=== PATIENT | male | born 1975 | race Two or more races ===

== ENCOUNTER 2025-08-12 09:12 | Emergency (ER) | payer BC, OTHER ==
[~2025-08-12] VITALS: Ht 175.3 cm; Wt 93.0 kg
[2025-08-12 09:33] LABS: Hematocrit 46.1 % (41.0-53.0); Hemoglobin 16.0 g/dL (13.5-17.5); Mean Corpuscular Hemoglobin 32.7 pg (28.0-32.0); Mean Corpuscular Volume 94.3 fL (80.0-100.0); Nucleated Red Blood Cells % 0.0 %
[2025-08-12 09:42] LABS: Chloride 101 mmol/L (98-107); Potassium 3.8 mmol/L (3.5-5.1)
[2025-08-12 09:43] LABS: Anion Gap 8 (5-15); Calcium 9.6 mg/dL (8.7-10.4); Carbon Dioxide 27 mmol/L (20-31)
[2025-08-12 09:45] LABS: Sodium 136 mmol/L (136-145)
[2025-08-12 09:48] LABS: BUN/Creatinine Ratio 8.7 (10.0-20.0); Glucose 91 mg/dL (74-106)
[2025-08-12 10:08] LABS: Blood Urea Nitrogen 8 mg/dL (9-23)
--- NOTE | 2025-08-12 11:03 | ED.PDOC ---
GI ASSESSMENT HPI Comments 50 year old male presents to the ED for chief complaint of abdominal pain. Pt states this morning he had sharp abdominal pains that radiate across chest to the upper right abdomen. Pt describes the pain as tightness in nature, with pain radiating from the abdomen to the chest, with no noted exacerbating or relieving factors. Pt has associated bloating on upper left quadrant, but otherwise denies associated symptoms of fever, chills, nausea or vomiting. Pt had CT scan last week at [facility], but states he did not receive a call regarding his results and was worried so he came to ED for further evaluation. In the ED, Pt had CT findings on phone which were determined to be otherwise normal. Pt vitals are otherwise stable. Pt denies any other symptoms at this time. Chief Complaint: Abdominal Pain Time Seen by MD: 11:00 Primary Care Provider: UNKNOWN Reviewed Notes: Nurses Notes Allergies: Coded Allergies: NO KNOWN ALLERGIES (Unverified , 02/14/12) Information Source: Patient Mode of Arrival: Ambulatory Past Medical History PAST MEDICAL HISTORY: Seizures Surgical History: Denies all surgeries Family History Family History: Unknown Social History Smoker: Cigarettes Alcohol: Heavy Drugs: Denies Drug Use Lives In: Home Constitutional: denies: chills, diaphoresis, fatigue, fever, malaise, sweats, weakness, others EENTM: denies: blurred vision, double vision, ear bleeding, ear discharge, ear drainage, ear pain, ear ringing, eye pain, eye redness, hearing loss, mouth pain, mouth swelling, nasal discharge, nose bleeding, nose congestion, nose pain, photophobia, tearing, throat pain, throat swelling, voice changes, others Respiratory: denies: cough, hemoptysis, orthopnea, SOB at rest, shortness of breath, SOB with excertion, stridor, wheezing, others Cardiovascular: denies: chest pain, dizzy spells, diaphoresis, Dyspnea on exertion, edema, irregular heart beat, left arm pain, lightheadedness, palpitations, PND, syncope, others Gastrointestinal: reports: abdominal pain; denies: abdomen distended, blood streaked bowels, constipated, diarrhea, dysphagia, difficulty swallowing, hematemesis, melena, nausea, poor appetite, poor fluid intake, rectal bleeding, rectal pain, vomiting, others Genitourinary: denies: burning, dysuria, flank pain, frequency, hematuria, incontinence, penile discharge, penile sore, pain, testicle pain, testicle swelling, urgency, others Neurological: denies: dizziness, fainting, headache, left sided numbness, left sided weakness, numbness, paresthesia, pre-existing deficit, right sided numbness, right sided weakness, seizure, speech problems, tingling, tremors, weakness, others Musculoskeletal: denies: back pain, gout, joint pain, joint swelling, muscle pain, muscle stiffness, neck pain, others Integumetry: denies: bruises, change in color, change in hair/nails, dryness, laceration, lesions, lumps, rash, wounds, others Allergic/Immunocompromised: denies: Difficulty Healing, Frequent Infections, Hives, Itching, others Hematologic/Lymphatic: denies: anemia, blood clots, easy bleeding, easy bruising, swollen glands, others Endocrine: denies: excessive hunger, excessive sweating, excessive thirst, excessive urination, flushing, intolerance to cold, intolerance to heat, unexplained weight gain, unexplained weight loss, others Psychiatric: denies: anxiety, bipolar disorder, depression, hopeless, panic disorder, schizophrenia, sleepless, suicidal, others All Other Systems: Reviewed and Negative Physical Exam General Appearance: No Apparent Distress, Normal HEENT: Normal ENT Inspection, Pharynx Normal, TMs Normal Neck: Full Range of Motion, Non-Tender, Normal, Normal Inspection Respiratory: Chest Non-Tender, Lungs Clear, No Accessory Muscle Use, No Respiratory Distress, Normal Breath Sounds Cardiovascular: No Edema, No JVD, No Murmur, No Gallop, Normal Peripheral Pulses, Regular Rate/Rhythm Breast Exam: Deferred Gastrointestinal: Diffuse, No Organomegaly, Non Tender, No Pulsatile Mass, Normal Bowel Sounds, Soft, Tenderness, Other (diffused tenderness) Genitalia: Deferred Pelvic: Deferred Rectal: Deferred Extremities: No calf tenderness, Normal capillary refill, Normal inspection, Normal range of motion, Non-tender, No pedal edema Neurologic: Alert, drug safety assistant II-XII nml as Tested, No Motor Deficits, Normal Affect, Normal Mood, No Sensory Deficits Cerebellar Function: Normal Reflexes: Normal Skin: Dry, Normal Color, Warm Lymphatic: No Adenopathy Was a procedure done? Was a procedure done?: No GI differential Dx Differential Diagnosis: Constipation, Gastroenteritis, Electrolyte Imbalance X-Ray, Labs, Meds, VS Vital Signs Date Time Temp Pulse Resp B/P (MAP) Pulse Ox O2 Delivery O2 Flow Rate FiO2 08/12/25 10:00 97.0 66 18 133/69 (90) 98 97.0 08/12/25 10:00 66 18 98 Room Air 08/12/25 09:19 58 08/12/25 09:14 97.0 66 18 133/69 98 97.0 Lab Test 08/12/25 10:14 08/12/25 09:25 Range/Units Troponin I High Sensitivity 4 4 </=54 ng/L White Blood Count 5.2 4.4-10.8 10^3/uL Red Blood Count 4.89 4.5-5.90 10^6/uL Hemoglobin 16.0 13.5-17.5 g/dL Hematocrit 46.1 41.0-53.0 % Mean Corpuscular Volume 94.3 80.0-100.0 fL Mean Corpuscular Hemoglobin 32.7 H 28.0-32.0 pg Mean Corpuscular Hemoglobin Concent 34.7 32.0-36.0 g/dL Red Cell Distribution Width 13.2 11.8-14.3 % Platelet Count 245 140-450 10^3/uL Mean Platelet Volume 8.0 6.9-10.8 fL Neutrophils (%) (Auto) 63.8 37.0-80.0 % Lymphocytes (%) (Auto) 28.7 10.0-50.0 % Monocytes (%) (Auto) 6.4 0.0-12.0 % Eosinophils (%) (Auto) 0.8 0.0-7.0 % Basophils (%) (Auto) 0.3 0.0-2.0 % Neutrophils # (Auto) 3.3 1.6-8.6 10 ^3/uL Lymphocytes # (Auto) 1.5 0.4-5.4 10 ^3/uL Monocytes # (Auto) 0.3 0-1.3 10 ^3/uL Eosinophils # (Auto) 0 0-0.8 10 ^3/uL Basophils # (Auto) 0 0-0.2 10 ^3/uL Nucleated Red Blood Cells 0.0 % Sodium Level 136 136-145 mmol/L Potassium Level 3.8 3.5-5.1 mmol/L Chloride Level 101 98-107 mmol/L Carbon Dioxide Level 27 20-31 mmol/L Anion Gap 8 5-15 Blood Urea Nitrogen 8 L 9-23 mg/dL Creatinine 0.92 0.700-1.30 mg/dL Glomerular Filtration Rate Calc 101 >90 mL/min BUN/Creatinine Ratio 8.7 L 10.0-20.0 Serum Glucose 91 74-106 mg/dL Calcium Level 9.6 8.7-10.4 mg/dL Time of 1ST Reevaluation: 11:30 Reevaluation 1ST: Unchanged Patient Education/Counseling: Diagnosis, Treatment Family Education/Counseling: No Family Present SEPSIS Sepsis Screen Date sepsis recognized/suspect: Aug 12, 2025 Time Sepsis recognized/suspect: 914 Recent Procedure: No On Antibiotic Therapy: No Respiratory Rate >20: No Heart Rate >90: No Temp<36 C (96.8 F) or >38.3 C: No SBP <90 or MAP <65 mmHG: No New Acute Mental Status Change: No Is the patient on CPAP, BIPAP,: No Physician Orders Electrocardiogram With Magnet (08/12/25 09:25) Electrocardigram (08/12/25 10:56) Electrocardigram (08/12/25 11:56) Electrocardigram (08/12/25 13:56) Vital Signs Date Time Temp Pulse Resp B/P (MAP) Pulse Ox O2 Delivery O2 Flow Rate FiO2 08/12/25 10:00 97.0 66 18 133/69 (90) 98 97.0 08/12/25 10:00 66 18 98 Room Air 08/12/25 09:19 58 08/12/25 09:14 97.0 66 18 133/69 98 97.0 Laboratory Tests Test 08/12/25 09:25 White Blood Count 5.2 10^3/uL (4.4-10.8) Departure 1 Departure Time of Disposition: 12:34 (Patient's workup is benign had an outpatient CT scan that was benign.) Impression: Primary Impression: Abdominal pain Disposition: HOME / SELF CARE / HOMELESS Condition: Stable Additional Instructions: Your workup today was benign. You can take Tylenol or Motrin as needed for pain. You should follow up with your regular doctor within 1 week. You should stay well rested and well hydrated. If your symptoms worsen or you have any other concerns please return to the emergency room. Discharged With: Self Critical Care Note Critical Care Time?: No Stability Stability form required: No Heart Score Heart Score: Heart Score Response (Comments) Value History N/A 0 EKG N/A 0 Age N/A 0 Risk Factors N/A 0 Troponin N/A 0 Total 0 I personally scribed for EDDIE MARTIN MD ([email or web address]) on 08/12/25 at 11:03. Electronically submitted by Ignacia Rodriguez ([employer]). I personally scribed for EDDIE MARTIN MD ([email or web address]) on 08/12/25 at 11:30. Electronically submitted by Ignacia Rodriguez ([employer]). EDDIE MARTIN MD Aug 12, 2025 11:03
[2025-08-12 13:35] VITALS: BP 128/84; PULSE 62; RESP 16; TEMP 97.8; O2SAT 98
--- NOTE | 2025-08-12 18:44 | ECG ---
[facility] Test Date: 2025-08-12 Test Time: 09:19:31 Pat Name: RODRIGO WORRELL Department: ER Room: Gender: M Communications Designer: BRADEN : 1975 Requested By: EDDIE MARTIN Order Number: [id number] Reading MD: Miky Lawrence Measurements Intervals [place] Rate: 58 P: 47 [place]: 104 QRS: 4 QRSD: 84 T: 2 QT: 398 QTc: 391 Interpretive Statements Sinus rhythm Short [place] interval Abnormal R-wave progression, early transition Left ventricular hypertrophy Electronically Signed On 08-13-2025 17:25:15 PST by Miky Lawrence Please click the below link to view image of tracing.
== END 2025-08-12 12:34 | disposition home or self-care (01) ==
LOC: ER 09:12
DX: R10.10 Upper abdominal pain, unspecified (principal); F17.210 Nicotine dependence, cigarettes, uncomplicated
CPT/HCPCS: 36415; 80048; 84484; 85025